=== PATIENT | male | born 1990 ===

== ENCOUNTER 2017-07-24 16:59 | Emergency (ER) | payer SELFPAY ==
[2017-07-24 17:30] VITALS: BP 152/73
[2017-07-24] MEDS ORDERED: Tetan/Diph/Pertus SYR(Tdap)* 0.5 ML SYR(BOOSTRIX) use SYR IM ONE (17:32)
--- NOTE | 2017-07-24 18:14 | UC ---
Skin Complaint HPI - HPI Summary HPI Summary: Patient present s/p puncture wound prior to arrival. He stepped on a nail that was on the side-walk and he was walking and didn't see it. He states his last tetanus was when he was 7 years old. He states he cleaned it at home, bleeding is controlled, denies any numbness or tingling. - History of Current Complaint Chief Complaint: [facility] Time Seen by Provider: 07/24/17 17:31 Stated Complaint: STEPPED ON NAIL Hx Obtained From: Patient Onset/Duration: Sudden Onset Timing: Constant Onset Severity: Mild Current Severity: Mild Location: Discrete, Foot (Left) Aggravating Factor(s): Nothing Alleviating Factor(s): Nothing Associated Signs & Symptoms: Positive: Negative - Allergy/Home Medications Allergies/Adverse Reactions: Allergies Allergy/AdvReac Type Severity Reaction Status Date / Time No Known Allergies Allergy Verified 07/24/17 17:29 Review of Systems Constitutional: Negative Skin: Negative Eyes: Negative ENT: Negative Respiratory: Negative Cardiovascular: Negative Gastrointestinal: Negative Genitourinary: Negative Motor: Negative Neurovascular: Negative Musculoskeletal: Myalgia - left plantar foot over the area of first metatarsal. Neurological: Negative Psychological: Negative All Other Systems Reviewed And Are Negative: Yes PMH/Surg Hx/FS Hx/Imm Hx Previously Healthy: Yes - Surgical History Surgical History: None - Family History Known Family History: Positive: None - Social History Lives: With Family Alcohol Use: None Substance Use Type: None Smoking Status (MU): Current Some Day Smoker - Immunization History Most Recent Tetanus Shot: Will need Physical Exam Triage Information Reviewed: Yes Appearance: Well-Appearing Vital Signs: Initial Vital Signs Temp 98.8 F 07/24/17 17:23 Pulse 87 07/24/17 17:23 Resp 20 07/24/17 17:23 BP 152/73 07/24/17 17:23 Pulse Ox 100 07/24/17 17:23 Eye Exam: Normal ENT Exam: Normal Dental Exam: Normal Neck exam: Normal Neck: Positive: 1 Respiratory Exam: Normal Cardiovascular Exam: Normal Abdominal Exam: Normal Musculoskeletal: Positive: Other: - small puncture wound noted left foot plantar aspect distal first metatarsal Neurological Exam: Normal Psychological Exam: Normal Skin Exam: Normal Course/Dx - Course Course Of Treatment: Patient presents s/p puncture wound to the left foot, the wound was cleaned throughly prior to arrival, and bleeding controlled. I inspected a bloodless wound bed and did not see any muscle, tendon, or bone. Patient could not sence any foreign body in the wound. Xrays were obtained and there was no obviuos foreign body in wound. The patient tetanus was updated, and I discussed with him to monitor for signs or symtpoms of infection, s/a redness, swelling, pain, warmth and drainage, and to monitor for signs of foreign body s/a pressure or sensation of something pricking him with pressure although there is no obvious foreign body on xray some materials are radiopaque and are not visible, adn to follow up with the orthopedists. He was dischaged home in Levaquin 500 mg by mouth once daily for five days. - Differential Diagnoses - Skin Complaint Differential Diagnoses: Other - puncture wound - Diagnoses Provider Diagnoses: puncture wound. tetanus vaccine Discharge - Discharge Plan Condition: Stable Disposition: HOME Prescriptions: Levofloxacin TAB* [Levaquin TAB*] 500 mg PO DAILY #5 tab Patient Education Materials: Diphtheria/Acellular Pertussis/Tetanus Vaccine ( By injection), Puncture Wound (ED) Additional Instructions: Monitor for signs of infection, or a sensation that there is something in the wound, and if you develop those symptoms please follow up with the orthopedist.
--- NOTE | 2017-07-24 18:31 | RAD ---
Indication: Status post on a nail. Entry wound at the first metatarsal phalangeal joint. Comparison: No relevant prior exams available on the [facility] [facility] [place]. Technique: AP, lateral, and oblique views RIGHT foot. REPORT AND IMPRESSION: Soft tissue swelling at the plantar aspect at the level of the metatarsal phalangeal joints. No subcutaneous emphysema or conspicuous foreign body evident. Normal articular alignment. Negative for fracture.
== END 2017-07-24 18:30 | disposition home or self-care (01) ==
LOC: UCEAST 16:59
DX: Z72.0 Tobacco use (principal); S91.332A Puncture wound without foreign body, left foot, initial encounter; W22.8XXA Striking against or struck by other objects, initial encounter; Y93.01 Activity, walking, marching and hiking; Y92.9 Unspecified place or not applicable; Y99.9 Unspecified external cause status; Z23 Encounter for immunization
CPT/HCPCS: 90715; 99202; G0463